=== PATIENT | male | born 1995 | race Caucasian/White ===

== ENCOUNTER 2025-01-05 10:52 | Emergency (ER) | payer SELFPAY ==
[~2025-01-05] VITALS: Ht 170.2 cm; Wt 77.0 kg
[2025-01-05 11:31] VITALS: O2SAT 96
[2025-01-05] MEDS ORDERED: AMOX1TAB16 MT (11:43)
[2025-01-05] MEDS: TETANUS, DIPHTHERIA, PERTUSSIS VAC/PF 0.5ML (>10YR OLD) IM ONE (11:50)
[2025-01-05] MEDS: ACETAMINOPHEN 325MG TABLET PO ONE (11:53)
[2025-01-05 13:13] VITALS: BP 107/74; PULSE 66; RESP 16; TEMP 36.8; O2SAT 100
== END 2025-01-05 13:19 | disposition home or self-care (01) ==
LOC: ER 10:52
DX: S91.332A Puncture wound without foreign body, left foot, initial encounter (principal); Z23 Encounter for immunization; Z90.49 Acquired absence of other specified parts of digestive tract; Z79.899 Other long term (current) drug therapy; Z98.890 Other specified postprocedural states; W45.0XXA Nail entering through skin, initial encounter; Y92.89 Other specified places as the place of occurrence of the external cause; Y93.01 Activity, walking, marching and hiking; Y99.8 Other external cause status
CPT/HCPCS: 73630; 90715; 90471; 99283; Z7610